=== PATIENT | female | born 1980 | race Caucasian/White ===

== ENCOUNTER 2021-09-24 07:04 | Emergency (ER) | payer OTHER, BC ==
[~2021-09-24] VITALS: Ht 170.2 cm; Wt 100.0 kg
== END 2021-09-24 11:13 | disposition home or self-care (01) ==
LOC: ED 07:04
DX: S42.254A Nondisplaced fracture of greater tuberosity of right humerus, initial encounter for closed fracture (principal); S62.235A Other nondisplaced fracture of base of first metacarpal bone, left hand, initial encounter for closed fracture; Z91.013 Allergy to seafood; V29.9XXA Motorcycle rider (driver) (passenger) injured in unspecified traffic accident, initial encounter
CPT/HCPCS: 71101; 73030; 73130; 99283-25; A9270